=== PATIENT | male | born 2000 | race Hispanic/Latino ===

== ENCOUNTER 2019-11-02 18:16 | Emergency (ER) | payer OTHER ==
[~2019-11-02] VITALS: Ht 167.6 cm; Wt 76.6 kg
[2019-11-02] MEDS ORDERED: NS 1,000 ML IV ONE (18:45)
[2019-11-02 18:55] LABS: BASO # 0.1 10^3/uL (0.0-0.2); BASO % 0.5 % (0.0-1.0); EOS # 0.1 10^3/uL (0.0-0.5); EOS % 0.6 % (0.0-3.0); LYMPH # 1.7 10^3/uL (1.5-5.0); MEAN CORPUSCULAR HEMOGLOBIN 30.4 pg (27.0-33.0); MEAN CORPUSCULAR HGB CONC 34.2 g/dl (32.0-36.5); MEAN CORPUSCULAR VOLUME 88.7 fl (80.0-96.0); MONO # 0.6 10^3/uL (0.0-0.8); NEUTROPHILS # 8.4 10^3/uL (1.5-8.5); PLATELET COUNT, AUTOMATED 227 10^3/uL (150-450); RED BLOOD COUNT 5.76 10^6/uL (4.30-6.10)
[2019-11-02 18:58] LABS: HEMOGLOBIN 17.5 g/dl (13.5-17.5)
[2019-11-02 18:59] LABS: HEMATOCRIT 51.1 % (42.0-52.0); LYMPH % 15.7 % (24.0-44.0); MONO % 5.3 % (0.0-5.0); NEUTROPHILS % 76.7 % (36.0-66.0)
--- NOTE | 2019-11-02 19:01 | REPVR ---
PROCEDURE INFORMATION: Exam: CT Head Without Contrast Exam date and time: 11/02/2019 6:40 PM Age: 19 years old Clinical indication: Syncope and collapse TECHNIQUE: Imaging protocol: Computed tomography of the head without contrast. Radiation optimization: All CT scans at this facility use at least one of these dose optimization techniques: automated exposure control; mA and/or kV adjustment per patient size (includes targeted exams where dose is matched to clinical indication); or iterative reconstruction. COMPARISON: No relevant prior studies available. FINDINGS: Brain: No hemorrhage. Unremarkable white matter for the patient's age. No mass effect. No evolving territorial infarct. Ventricles: No ventriculomegaly. Bones/joints: No acute calvarial fracture seen. Sinuses: Visualized sinuses are unremarkable. No fluid levels. Mastoid air cells: Visualized mastoid air cells are well aerated. Soft tissues: Unremarkable. IMPRESSION: No acute intracranial abnormality seen. Electronically signed by: Dahiana See On 11/02/2019 19:01:17 PM
[2019-11-02 19:29] LABS: BLOOD UREA NITROGEN 13 MG/DL (7-18); CARBON DIOXIDE LEVEL 31 MEQ/L (21-32); CHLORIDE LEVEL 105 MEQ/L (98-107); CREATININE FOR GFR 1.83 MG/DL (0.70-1.30); GLUCOSE, FASTING 76 MG/DL (70-100); POTASSIUM SERUM 4.4 MEQ/L (3.5-5.1); SODIUM LEVEL 141 MEQ/L (136-145); THYROID STIMULATING HORMONE 0.409 uIU/ML (0.463-3.98)
[2019-11-02 20:29] LABS: CPK CREATINE PHOSPHOKINASE 184 U/L (39-308)
[2019-11-02 20:55] VITALS: BP 129/61
--- NOTE | 2019-11-03 07:38 | REP ---
CHEST SINGLE VIEW: There is no evidence of acute infiltrate. No pleural effusion is seen. The heart is normal in size. The mediastinal silhouette is unremarkable. The visualized osseous structures are intact. IMPRESSION: No acute pulmonary disease. Electronically Signed by Wang Carrillo MD 11/03/2019 09:45 P
--- NOTE | 2019-11-03 10:10 | ECGEPIP ---
[facility] - ED Test Date: 2019-11-02 Pat Name: SRIDHAR DIGGS Department: Room: - Gender: Male Cytogenetic Technician: CHRISTINA : 2000 Requested By: JOSE DELGADO PA-C Order Number: [id number] Reading MD: Gino Oliveros Measurements Intervals [place] Rate: 84 P: 61 MT: 144 QRS: 79 QRSD: 89 T: 16 QT: 345 QTc: 410 Interpretive Statements SINUS RHYTHM NONSPECIFIC T WAVE ABNORMALITIES NO PRIORS FOR COMPARISON Electronically Signed on 11-03-2019 10:10:45 EDT by Gino Oliveros
== END 2019-11-02 20:57 | disposition home or self-care (01) ==
LOC: M ED 18:16
DX: E86.0 Dehydration (principal); R42 Dizziness and giddiness